=== PATIENT | male | born 2000 | race Two or more races ===

== ENCOUNTER 2024-07-10 09:58 | Emergency (ER) | payer BC, OTHER, SELFPAY ==
[2024-07-10 10:08] VITALS: BP 154/91; PULSE 95; RESP 19; TEMP 36.9; O2SAT 95; BMI 27.9
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
[2024-07-10] MEDS: IBUPROFEN TAB 400 MG TABLET 800 MG PO (10:43)
[2024-07-10] MEDS: HYDROcodone/APAP 5/325 TABLET 1 TAB PO (10:43)
[2024-07-10] MEDS: ONDANSETRON ODT 4 MG TABRAP PO (11:53)
== END 2024-07-10 12:04 | disposition home or self-care (01) ==
PROVIDERS: Emergency Provider Emergency Medicine; PCP Family Medicine
DX: M25.512 Pain in left shoulder (principal); R07.9 Chest pain, unspecified
CPT/HCPCS: 73000; 99283; A4565; Q0162; A9270

== ENCOUNTER 2024-07-11 12:59 | Emergency (ER) | payer BC, OTHER, SELFPAY ==
[2024-07-11 13:15] VITALS: BP 138/89; PULSE 88; RESP 18; TEMP 36.8; O2SAT 99; BMI 28.8
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
== END 2024-07-11 16:40 | disposition home or self-care (01) ==
PROVIDERS: Emergency Provider Emergency Medicine; PCP Family Medicine
DX: S09.90XA Unspecified injury of head, initial encounter (principal); V19.3XXA Pedal cyclist (driver) (passenger) injured in unspecified nontraffic accident, initial encounter; Y93.55 Activity, bike riding
CPT/HCPCS: 70450; 72125; 99284